=== PATIENT | male | born 1960 | race Two or more races ===

== ENCOUNTER → 2024-07-26 | Outpatient (CLI) | payer MEDICAID, SELFPAY ==
--- NOTE | 2024-07-26 13:30 | XR_ITS ---
Examination: Testicular sonography complete TECHNIQUE: Grayscale sonographic images testes, assessment arterial inflow venous outflow Doppler spectral analysis carful analysis Date and time: July 26, 2024 1337 hours INDICATIONS: Left testicular swelling beginning 5 months ago, history hydrocele. FINDINGS: Right testis 4.8 cm epididymis 33 mm Arterial flow testicle. Right epididymal cyst 14 mm No testicular mass Mild hydrocele Left testis 4.4 cm epididymis 1.3 cm Arterial flow testicle. 6 mm left epididymal cyst No testicular mass Prominent left hydrocele IMPRESSION:: No testicular torsion or testicular mass Prominent left hydrocele
== END | disposition home or self-care (01) ==
PROVIDERS: PCP Nurse Practitioner Family; Referring Provider Nurse Practitioner Family; Visit Provider Nurse Practitioner Family
DX: N43.3 Hydrocele, unspecified (principal)
CPT/HCPCS: 76870

== ENCOUNTER 2024-11-15 10:20 | Day surgery (SDC) | payer MEDICAID, SELFPAY ==
--- NOTE | 2024-11-13 07:00 | EKG_ITS ---
[facility] Test Date: 2024-11-13 Pat Name: NICK DAVIS Department: Room: - Gender: Male Flat Examiner: MARC : 1960 Requested By: Richard West Order Number: [id number] Reading MD: Richard West Measurements Intervals [place] Rate: 52 P: 58 IN: 153 QRS: 22 QRSD: 88 T: 30 QT: 414 QTc: 385 Interpretive Statements SINUS BRADYCARDIA No previous ECG available for comparison /store/S0/[id number]/[id number]
[2024-11-13 10:36] VITALS: BMI 37.1
[2024-11-13 10:55] LABS: Collection Type, Urine Clean Catch; Squamous Epithelial Cell,Urine 0 /hpf (0-5)
[2024-11-13 13:32] LABS: Basophils # (Auto) 0.0 Thou/mm3 (0.0-0.2); Basophils % (Auto) 0 % (0-2.5); Eosinophils # (Auto) 0.3 Thou/mm3 (0.0-0.5); Eosinophils % (Auto) 3 % (0-10); Hematocrit 42.2 % (41.0-53.0); Hemoglobin 14.7 g/dL (13.5-16.0); Immature Granulocytes Auto 0.04 Thou/mm3 (0.00-0.00); Lymphocytes # (Auto) 3.4 Thou/mm3 (1.0-4.8); Lymphocytes % (Auto) 39 % (10-50); Mean Corpuscular HGB Conc 34.8 g/dl (31.0-37.0); Mean Corpuscular Hemoglobin 29.3 pg (25.0-35.0); Mean Corpuscular Volume 84 fL (80-100); Monocytes # (Auto) 0.7 Thou/mm3 (0.0-0.8); Monocytes % (Auto) 8 % (0-12); Neutrophils # (Auto) 4.2 Thou/mm3 (1.8-7.7); Neutrophils % (Auto) 49 % (37-80); Nucleated Red Blood Cell # 0.00 Thou/mm3 (0.00-0.00); Nucleated Red Blood Cell % 0 /100 WBC (0); Platelet Count 186 Thou/mm3 (140-440); RDW Standard Deviation 37.9 fL (35.1-43.9); Red Blood Count 5.01 Miln/mm3 (4.50-5.90); White Blood Count 8.6 Thou/mm3 (3.8-10.6)
[2024-11-13 13:48] LABS: Alanine Aminotransferase 28 U/L (10-49); Albumin, Serum 4.5 gm/dL (3.4-4.8); Albumin/Globulin Ratio 1.4 (1.2-2.2); Alkaline Phosphatase 69 U/L (46-116); Anion Gap 11 (7-16); Aspartate Amino Transferase 27 U/L (0-34); BUN/Creatinine Ratio 9 Ratio (12-20); Bilirubin,Total 1.4 mg/dL (0.3-1.2); Blood Urea Nitrogen 13 mg/dL (9-23); Calcium 10.0 mg/dL (8.3-10.6); Calcium (Corrected) 10.0 mg/dL (8.5-10.1); Carbon Dioxide 26.8 mMol/L (20.0-31.0); Chloride 105 mMol/L (98-107); Creatinine (Component) 1.4 mg/dL (0.6-1.3); Estimated Creatinine Clearance 46.7 mL/min (>60); Globulin 3.3 gm/dL (2.3-3.5); Glucose 95 mg/dL (74-106); Osmolality,Calculated 285 (275-295); Potassium 3.8 mMol/L (3.4-5.1); Sodium 143 mMol/L (136-145); Total Protein 7.8 gm/dL (5.7-8.2); eGFR 56 See Note
[2024-11-13 13:54] LABS: Bacteria,Urine Rare; Bilirubin,Urine Negative (Negative); Blood,Urine Negative (Negative); Clarity,Urine Clear (Clear/Hazy); Color,Urine Lt-Yellow (Lt Yel-Yel); Glucose, Urine Negative (Negative); Ketones,Urine Negative (Negative); Leukocyte Esterase,Urine Negative (Negative); Nitrite,Urine Negative (Negative); PH,Urine 6.5 (5.0-7.0); Protein,Urine Negative (Neg - Trace); RBC,Urine 1 /hpf (0-3); Specific Gravity,Urine 1.019 (1.001-1.035); Urobilinogen,Urine Negative mg/dL (0.0-1.0); WBC,Urine 1 /hpf (0-5)
--- NOTE | 2024-11-14 15:04 | ESHP_ITS ---
RE: NICK DAVIS : 1960 DATE OF ADMISSION: 11/15/2024 HISTORY OF PRESENT ILLNESS: The patient is a 64-year-old gentleman with a history of left-sided hydrocele, which is bothering him. He has no urinary difficulty. PAST SURGICAL HISTORY: Included left lung operation. PAST MEDICAL HISTORY: He has no history of diabetes mellitus. He has a history of hypertension. SOCIAL HISTORY: He has 9 children. HOME MEDICATIONS: He takes high blood pressure pills. ALLERGIES: NONE KNOWN. PHYSICAL EXAMINATION: HEENT: Normal. NECK: Supple. LUNGS: Clear. HEART: Sounds are normal. ABDOMEN: Soft without any organomegaly. No guarding. No rigidity. EXTREMITIES: Normal. GENITOURINARY: Phallus is normal. Testes are down in the scrotum. Left-sided scrotal hydrocele 4 inches in size. Fluctuation is positive. Transillumination is positive. There are no hernias. The right testis is normal in the scrotum. IMPRESSION: Left scrotal hydrocele, symptomatic. PLAN: Left hydrocelectomy. Planned procedure risks and complications have been discussed with the patient. The patient has understood them and agreed to proceed. Thank you. DT: 14:44:08 TT: 15:03:00 Ref: [id number] - TID: [id number]
[2024-11-15] VITALS (8 sets, daily range): BP systolic 119–158; BP diastolic 86–99; PULSE 76–89; RESP 13–19; TEMP 36.2–37; O2SAT 95–98; BMI 36.6
--- NOTE | 2024-11-15 10:42 | SUR.PREOP ---
Patient expressed gratitude for prayer before their procedure.
--- NOTE | 2024-11-15 12:33 | SUR.PHASEI ---
pt received from OR in recovery bay 1. pt asleep but responds to voice, breathing unlabored on oxymask 8l. v/s stable. pt dressing to scrotal area cdi. report received from Dr. Tuttle and Joshua PICKETT.
[2024-11-15] MEDS: fentaNYL CIT INJ 50 mCg/ML AMP 2ML 25 MCG IVP ×2 (12:51→13:15)
--- NOTE | 2024-11-15 13:08 | SUR.PHASEII ---
pt able to tolerate oral fluids without difficulty swallowing or nausea/vomiting.
--- NOTE | 2024-11-15 13:43 | SUR.PHASEII ---
pt awake and alert, breathing unlabored on room air. v/s stable. pt dressing to scrotal area cdi. pt able to ambulate to wheelchair with steady gait. d/c instructions given with daughter Kera and son in room using brisket puller Thad BUCHANAN5, all questions answered. pt d/c via wheelchair with all belongings.
--- NOTE | 2024-11-15 16:40 | ESOP_ITS ---
RE: NICK DAVIS : 1960 DATE OF OPERATION: 11/15/2024 PREOPERATIVE DIAGNOSIS: Large left scrotal hydrocele. POSTOPERATIVE DIAGNOSIS: Large left scrotal hydrocele with prominent appendix of the left testis. PROCEDURE PERFORMED: At this time is left hydrocelectomy with excision and fulguration of the appendix of the left testis. ANESTHESIA: General by Dr. Tuttle. INDICATIONS: The patient is a 64-year-old gentleman with large left scrotal hydrocele 4-5 inches in size. He was referred to co. He is now scheduled to have left hydrocelectomy. Planned procedure, risks, and complications have been discussed with the patient. The patient understood them and agreed to proceed. DESCRIPTION OF PROCEDURE: After the patient was brought to the operating table under adequate general anesthesia in supine position, parts were prepped and draped in the usual fashion. Left vertical incision was then made over the left hemiscrotum about 5 cm long. Skin and subcutaneous tissues were incised. Hydrocele sac was identified. It was dissected from all surrounding structures and hydrocele sac was opened and was found to contain a large amount of clear yellow hydrocele fluid about 200-300 mL. Partial excision of the hydrocele sac was done and the hydrocele sac was everted behind the spermatic cord structures with interrupted sutures of 3-0 chromic catgut. There was a prominent appendix of the left testis, which was excised and fulgurated. Complete hemostasis was obtained. The left testis itself appeared normal without any tumors on the testis. The testis was placed back in the left hemiscrotum and the wound was closed in 2 layers, first closing tunica dartos with continuous sutures of 3-0 chromic catgut and the skin wound was closed with continuous sutures of 3-0 chromic catgut. Local anesthetic was injected at the site of skin. Sterile dressing was then applied. The patient was then transferred to the recovery room in a satisfactory condition having tolerated the entire procedure well. Sponge count and needle count at the end of the procedure was found to be correct. Estimated blood loss was approximately 5 mL. DT: 13:13:01 TT: 16:37:00 Ref: [id number] - TID: [id number]
== END 2024-11-15 13:43 | disposition home or self-care (01) ==
PROVIDERS: Anesthesiology; PCP Nurse Practitioner Family; Referring Provider Surgery; Visit Provider Surgery
PROC: (CPT 55040; principal; 2024-11-15 13:30)
DX: N43.3 Hydrocele, unspecified (principal); Z01.810 Encounter for preprocedural cardiovascular examination; Q55.29 Other congenital malformations of testis and scrotum
CPT/HCPCS: 55040; 36415; 80053; 81001; 85025; 93005; A4217; A4649; J0131; J0461; J0694; J1100; J1885; J2250; J2405; J2704; J3010; J3490; L8330; A9270